=== PATIENT | male | born 1990 | race Caucasian/White ===

== ENCOUNTER 2020-04-17 18:34 | Emergency (ER) | payer OTHER ==
[~2020-04-17] VITALS: Ht 167.6 cm; Wt 82.0 kg
[2020-04-17] MEDS ORDERED: METHOCARBAMOL 750 MG TABLET ONE (19:56)
[2020-04-17] MEDS ORDERED: KETOROLAC 30 MG/1 ML ONE (19:56)
[2020-04-17] MEDS ORDERED: METHOCARBAMOL 750 MG TABLET PO ONE (20:00)
[2020-04-17] MEDS ORDERED: KETOROLAC 30 MG/1 ML IM ONE (20:00)
[2020-04-17 20:42] VITALS: BP 131/80
--- NOTE | 2020-04-17 21:03 | NUR ---
PT REPORTS PAIN IS BETTER AFTER MEDS AT A 3/10.
== END 2020-04-17 21:04 | disposition home or self-care (01) ==
LOC: ED 20:41
DX: S33.5XXA Sprain of ligaments of lumbar spine, initial encounter (principal); S16.1XXA Strain of muscle, fascia and tendon at neck level, initial encounter; V53.5XXA Driver of pick-up truck or van injured in collision with car, pick-up truck or van in traffic accident, initial encounter; Y93.89 Activity, other specified; Y92.410 Unspecified street and highway as the place of occurrence of the external cause; Y99.8 Other external cause status
CPT/HCPCS: 72125; 72131; 96372; 99285; J1885